=== PATIENT | female | born 1935 | race Caucasian/White ===

== ENCOUNTER → 2016-08-12 | Outpatient (CLI) | payer MEDICARE | END | disposition home or self-care (01) | LOC: GMAB 10:13 | PROVIDERS: ATTEND Family Medicine | DX: N39.0 Urinary tract infection, site not specified (principal) ==

== ENCOUNTER → 2016-08-19 | Outpatient (CLI) | payer MEDICARE ==
--- NOTE | 2016-08-19 09:30 | CT ---
EXAM DESCRIPTION: CT ABDOMEN PELVIS WITHOUT THEN WITH IV CONTRAST CLINICAL HISTORY: HEMATURIA COMPARISON: None. TECHNIQUE: Pre and post contrast CT images of the abdomen and pelvis are obtained. CT scan done according to ALARA (As Low As Reasonably Achievable). FINDINGS: The visualized lung bases show a noncalcified 5 mm pulmonary nodule in the right lower lobe. 3 mm subpleural nodule is also seen on image 3 of series 2. The liver is mildly enlarged measuring 16 cm AP at the right midclavicular line. Liver is heterogeneous and decreased attenuation compared to the spleen without focal mass. Small hiatal hernia is noted. Spleen, adrenal glands, and gallbladder are unremarkable. Mild to moderate fatty replacement of the pancreas is seen. Moderate atherosclerotic disease is seen. Kidneys show no abnormal calcifications. No ureteral calcification or obstruction is seen. Several fluid attenuation renal cortical cysts and parapelvic cysts are identified on the right kidney. Dominant cortical cyst measures 3.4 cm in the lower pole. There are fluid attenuation parapelvic cysts of the left kidney measuring less than 1.6 cm greatest diameter. Urinary bladder is contracted with diffuse circumferential bladder wall thickening. The uterus shows a 5 mm calcification in the right fundus probably representing calcified uterine fibroid. No abnormal adnexal mass is seen. The appendix is within normal limits. No small bowel obstruction. Colon is unremarkable. No significant diverticular disease is seen. No pathologic lymphadenopathy is seen. Small fat containing umbilical hernia is noted. Osseous structures show no aggressive bony lesions. IMPRESSION: There are several simple appearing bilateral renal cortical cysts and parapelvic cyst. No CT evidence of significant nephrolithiasis. Diffuse urinary bladder wall thickening is seen. This could be secondary to poor distension of the urinary bladder. Infectious or inflammatory process could have a similar appearance. Moderate diffuse fatty infiltration of the liver is noted. Other findings as described in body of the report. Nonspecific 5 mm noncalcified pulmonary nodule in the right lower lobe. Recommend followup imaging in 6-12 months to determine long-term stability. As per Fleischner Society guidelines for follow-up and management of pulmonary nodules: For patient at low risk (minimal or absent history of smoking and of other known risk factors), recommend follow-up chest CT at 12 months; if unchanged, no further follow-up. For patient at high risk (history of smoking or of other known risk factors), recommend initial follow-up chest CT at 6-12 months, then at 18-24 months if no interval change. Electronically signed by: David Gloria MD 08/19/2016 09:28
== END | disposition home or self-care (01) ==
LOC: CT 08:11
PROVIDERS: ATTEND Family Medicine
DX: R31.9 Hematuria, unspecified (principal)

== ENCOUNTER → 2017-02-13 | Outpatient (CLI) | payer MEDICARE | END | disposition home or self-care (01) | LOC: GMAB 09:59 | PROVIDERS: ATTEND Family Medicine | DX: E03.9 Hypothyroidism, unspecified (principal) ==

== ENCOUNTER 2017-05-05 18:47 | Inpatient (IN) | payer MEDICARE ==
--- NOTE | 2017-05-05 19:12 | ED.PDOC ---
History of Present Illness - General Chief Complaint: Lower Extremity Injury Stated Complaint: Left hip pain Time Seen by Provider: 05/05/17 18:52 Source: patient, RN notes reviewed, Vital Signs reviewed, EMS Exam Limitations: no limitations - History of Present Illness Initial Comments: Patient comes to ER via EMS with c/o L hip pain and inability to get up. She accidentally backed off a step and fell onto concrete garage floor. She was unable to get herself back up. She denies any other injuries. Occurred: just prior to arrival Pain - Lower Extremity: moderate: Left Thigh/Hip Method of Injury: fell Improving Factors: rest Worsening Factors: movement Allergies/Adverse Reactions: Allergies Penicillins Allergy (Verified 05/05/17 18:50) Review of Systems - Review of Systems Constitutional: States: no symptoms reported EENTM: States: no symptoms reported Respiratory: States: no symptoms reported Cardiology: States: no symptoms reported Musculoskeletal: States: see HPI, joint pain - L hip Skin: States: no symptoms reported Neurological: States: no symptoms reported. Denies: numbness, paresthesia All other Systems: No Change from Baseline Past Medical History (General) - Patient Medical History Hx Seizures: No Hx Stroke: No Hx Dementia: No Hx Asthma: No Hx of COPD: No Hx Cardiac Disorders: No Hx Congestive Heart Failure: No Hx Pacemaker: No Hx Hypertension: Yes Hx Thyroid Disease: Yes - hypothyroid Hx Diabetes: Yes Hx Gastroesophageal Reflux: No Hx Renal Disease: No Hx Cancer: No Hx of HIV: No Hx Hepatitis C: No Hx MRSA: No Surgical History: no surgical history - Vaccination History Hx Tetanus, Diphtheria Vaccination: No Hx Influenza Vaccination: No Hx Pneumococcal Vaccination: Yes Immunizations Up to Date: Yes - Social History Hx Tobacco Use: No Hx Alcohol Use: No - Female History Patient is a Female of Child Bearing Age (10 -59 yrs old): No Family Medical History - Family History Mother Family History: No Known Living Status: Physical Exam - Physical Exam General Appearance: Alert, Comfortable, No apparent distress, Well Developed, Well Groomed, Well Hydrated, Well Nourished Cardiovascular/Respiratory: regular rate, rhythm, no M/R/G, normal peripheral pulses, normal breath sounds, no respiratory distress Thigh/Hip: deformity - L leg externally rotated, limited ROM, pain Leg: normal inspection, non-tender, no evidence of injury, normal ROM Knee: normal inspection, non-tender, no evidence of injury, normal ROM Foot: normal inspection, non-tender, no evidence of injury, normal ROM Neuro/Tendon: normal sensation, normal motor functions, normal tendon functions , responds to pain, no evidence tendon injury Mental Status: alert, oriented x 3 Skin: normal color, warm/dry Comments: Vital Signs 05/05/17 18:50 Temperature 98.8 F Pulse Rate [ 86 Left radial] Respiratory 18 Rate Blood Pressure 175/73 [Left Arm] O2 Sat by Pulse 96 Oximetry Progress - Progress Progress: 05/05/17 20:[address] 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 Copy, Patient Portal Self Enrollment Instructions: DI for Leg Pain Referrals: Graham Pak MD [Primary Care Provider] - 1-2 Weeks Decision To Admit - Decistion To Admit Decision to Admit Reason: Admit from ER Decision to Admit Date: 05/05/17 Decision to Admit Time: 20:00
[2017-05-05] MEDS ORDERED: ONDANSETRON INJ 4 MG/2 ML VIAL IV ONE (19:18)
[2017-05-05] MEDS ORDERED: HYDROmorphone HCL INJ 2 MG/ML VIAL IV ONE (19:18)
--- NOTE | 2017-05-05 19:48 | RAD ---
EXAM DESCRIPTION: Hip, left 2 Views CLINICAL HISTORY: 81 years Female pain s/p fall COMPARISON: None. TECHNIQUE: Two views of the left hip. FINDINGS: There are slightly distracted intertrochanteric fractures with minimal varus angulation. The lesser trochanter fracture fragment is displaced slightly medially. IMPRESSION: Intertrochanteric fractures involving the left hip. Electronically signed by: Phillip Fournier MD 05/05/2017 7:46 PM CDT
--- NOTE | 2017-05-05 20:24 | HP ---
SUPERVISING PHYSICIAN: Marco Antonio Hill MD HISTORY OF PRESENT ILLNESS: This is an 81 year-old female patient who was visiting a friend earlier today. She accidentally backed off the step at her friend's house and fell and was unable to get back up. The ambulance was called and she was brought to the Emergency Room. In the Emergency Room, there was no lab drawn but her hip x-ray per radiology interpretation shows an intertrochanteric fracture of the left hip. The Emergency Room physician called Dr. De La O, orthopedic surgeon, and I was called for hospital admission. PAST MEDICAL HISTORY: 1. Seasonal allergies. 2. Hyperlipidemia. 3. Hypothyroidism. 4. Osteoporosis. 5. Eczema. 6. Diabetes mellitus type 2. PAST SURGICAL HISTORY: 1. Tonsillectomy as a child. 2. Colonoscopy. OUTPATIENT MEDICATIONS: Per the EMR and awaiting verification. ALLERGIES: 1. Penicillin. 2. Lisinopril. 3. Norvasc. SOCIAL HISTORY: She is , she lives in [place]. She has 2 children. She denies smoking, ETOH or illicit drug use. REVIEW OF SYSTEMS: Negative except as per history of present illness. PHYSICAL EXAMINATION: VITAL SIGNS: Temperature 99.2, heart rate 94, blood pressure 154/77, respiratory rate 16. 02 saturation 94% on 2 liters nasal cannula/ GENERAL: This is an 81 year-old female patient who looks younger than her stated age, lying in her hospital in no acute distress. HEENT: Normocephalic and atraumatic. Pupils are equal and reactive. Oropharyngeal is clear. Oral mucous membranes are moist. NECK: Suppe without mass. CHEST: Clear to auscultation bilaterally. Chest has equal rise and fall of the chest with inspiration and expiration. CARDIOVASCULAR: Regular rate and rhythm. ABDOMEN: Soft, nondistended, non-tender. Bowel sounds are positive. EXTREMITIES: No cyanosis, clubbing, or edema. She does have pain, it is tender to palpation along the left hip and extends into the left groin. NEUROLOGIC: She is awake, alert, and oriented x3. SKIN: Warm and dry. No lesions or rashes noted. LABORATORY: There are no labs or films to report at this time. ASSESSMENT: 1. Intertrochanteric fracture of the left hip status post same level fall. 2. Diabetes mellitus. 3. Hypertension. 4. Hypothyroidism. 5. Gastroesophageal reflux disease. PLAN: We will admit the patient to the hospital. I have initiated the preoperative orders and have consulted Dr. De La O. He plans to do a gamma nail tomorrow at noon. She will be typed and crossed for 2 units of blood that will be on hold. There will be 2 grams of Ancef and 1 gram of vancomycin education spec to OR. Started Protonix for ulcer prophylaxis. She will be n.p.o. at midnight. We will give her medications tonight before midnight. I have ordered routine labs for this evening as well as a chest x-ray. We will follow her closely tonight and postoperatively and continue to monitor her closely and followup as needed. Dr. Hill is the collaborating physician available for consultation. #[id number] [facility]
[2017-05-05] MEDS ORDERED: KETOROLAC TROMETHAMINE INJ 30 MG/ML VIAL ONE (20:37)
[2017-05-05] MEDS ORDERED: KETOROLAC TROMETHAMINE INJ 30 MG/ML VIAL IV ONE (20:37)
[2017-05-05] MEDS ORDERED: NON-FORMULARY MEDICATION 1 EA MIS (Pravastatin Sodium [Pravachol] 40 MG) PO SCH (21:00)
[2017-05-05] MEDS ORDERED: ONDANSETRON INJ 4 MG/2 ML VIAL IV PRN (21:15)
[2017-05-05] MEDS ORDERED: PANTOPRAZOLE SODIUM IV 40 MG VIAL IV SCH (21:30)
[2017-05-05] MEDS ORDERED: PRAVASTATIN SODIUM 20 MG TAB ONE (21:56)
[2017-05-05] MEDS: SODIUM CHLORIDE 0.9% (FLUSH) 10 ML SYG IV PRN (22:00)
[2017-05-05] MEDS: LOSARTAN POTASSIUM 100 MG TAB PO SCH (22:01)
[2017-05-05] MEDS: METOPROLOL SUCCINATE XL 50 MG TAB PO SCH (22:01)
[2017-05-05] MEDS: amLODIPine BESYLATE 5 MG TAB PO SCH (22:01)
[2017-05-05] MEDS: IV SET AND CAP CHANGE INJ INJ SCH (22:02)
--- NOTE | 2017-05-05 22:42 | RAD ---
EXAM DESCRIPTION: Chest,1 View CLINICAL HISTORY: 81 years Female preop COMPARISON: None. FINDINGS: The cardiomediastinal silhouette appears unremarkable. No consolidating infiltrates or pleural effusions. No pneumothorax. Lungs appear hyperinflated. Atelectasis or scarring in both lung bases. IMPRESSION: No acute abnormality is identified. Electronically signed by: Sherri Fournier 05/05/2017 10:40 PM CDT
[2017-05-06] MEDS: MORPHINE SULFATE INJ 10 MG/ML VIAL IV PRN ×4 (03:51→20:13)
[2017-05-06] MEDS ORDERED: VANCOMYCIN HCL INJ 1,000 MG in SODIUM CHLORIDE 0.9% 250ML 250 ML IVPB ONE (06:00)
[2017-05-06] MEDS ORDERED: ceFAZolin SODIUM 2 GM in SODIUM CHLORIDE 0.9% 100ML 100 ML IVPB ONE (06:00)
[2017-05-06] MEDS: METOPROLOL SUCCINATE XL 50 MG TAB PO SCH ×2 (08:30→20:53)
[2017-05-06] MEDS: LEVOTHYROXINE SODIUM 0.025 MG TAB PO SCH (08:32)
[2017-05-06] MEDS ORDERED: MIDAZOLAM INJ 2 MG/2 ML VIAL ONE (11:05)
[2017-05-06] MEDS ORDERED: MORPHINE SULFATE INJ 10 MG/ML VIAL ONE (11:06)
[2017-05-06] MEDS ORDERED: ceFAZolin SODIUM 1 GM VIAL ONE ×2 (11:07→11:21)
[2017-05-06] MEDS ORDERED: VANCOMYCIN HCL INJ 1,000 MG VIAL IVPB ONE ×4 (11:08→20:33)
[2017-05-06] MEDS ORDERED: LIDOCAINE 1% W/ EPINEPHRINE 20 ML VIAL INJ ONE (11:08)
[2017-05-06] MEDS ORDERED: SODIUM CHLORIDE 0.9% 250ML 250 ML ONE ×2 (11:19→20:32)
[2017-05-06] MEDS ORDERED: GLUCAGON INJ 1 MG VIAL SUBCU PRN (11:21)
[2017-05-06] MEDS ORDERED: DEXTROSE 50% 25 GM/50 ML SYG IV PRN (11:21)
[2017-05-06] MEDS ORDERED: SODIUM CHLORIDE 0.9% 100ML 100 ML IVPB ONE (11:22)
--- NOTE | 2017-05-06 11:45 | PN ---
DATE: 05/06/17 SUPERVISING PHYSICIAN: Marco Antonio Hill M.D. SUBJECTIVE: The patient is lying in her hospital bed. She is awaiting surgery this morning for a gamma nail to the left hip. Dewayne Guerrero, CHRISTY, is at the bedside discussing her surgical procedure. She has no complaints of shortness of breath, nausea or vomiting, diarrhea or constipation. She continues to have some mild pain along that left hip but it is being controlled by the medication she is receiving. OBJECTIVE: VITAL SIGNS: She is afebrile, heart rate 70, blood pressure 120/70, respiratory rate 12 to 16, O2 sat is 97% on room air. RESPIRATORY: Clear to auscultation bilaterally. CARDIAC: Regular rate and rhythm. ABDOMEN: Soft, nondistended, non-tender. Bowel sounds are positive. EXTREMITIES: No cyanosis , clubbing or edema. Bilateral pedal pulses are palpable at +2. It continues to be tender to palpation along that left lateral hip area. NEUROLOGIC: She is awake, alert and oriented times three. LABORATORY: WBCs are slightly elevated at 15.5 with hemoglobin 13.5 and hematocrit 40.7. Coags are within normal limits. Chemistries are within normal limits with the exception of her glucose is slightly elevated at 171. Urinalysis is negative for a urinary tract infection. RADIOLOGY: Chest x-ray shows no acute abnormality. All other labs and films have been reviewed via the EMR. ASSESSMENT: 1. Intertrochanteric fracture of the left hip status post same level fall. She is awaiting surgical intervention for gamma nail today by Dr. Delta De La O, orthopedic surgeon. 2. Diabetes mellitus. 3. Hypertension. 4. Hypothyroidism. 5. Gastroesophageal reflux disease. PLAN: We will continue present supportive care. She will go to surgery today for a gamma nail per Dr. Delta De La O, orthopedic surgeon. Orthopedic issues will be per Dr. Delta De La O. I have already started her home medications. She has been NPO but postoperatively those will resume. I have also started Accu- Cheks a.c. and h.s. Tomorrow she will start with her physical therapy for strengthening and conditioning. Otherwise we will continue to monitor the patient closely and follow as needed. Dr. Hill is the collaborating physician available for consultation. #[id number] [facility]
[2017-05-06] MEDS ORDERED: ELECTROLYTE-A 1,000 ML IVS ONE (11:49)
[2017-05-06] MEDS ORDERED: PROPOFOL 200 MG/20 ML VIAL IV ONE (12:00)
[2017-05-06] MEDS ORDERED: SODIUM CHLORIDE 0.9% 50 ML VIAL INJ ONE (12:00)
[2017-05-06] MEDS ORDERED: ePHEDrine SULF 50 MG/ML IV ONE (12:00)
[2017-05-06] MEDS ORDERED: DEXAMETHASONE INJ 10 MG/ML VIAL IV ONE (12:00)
[2017-05-06] MEDS ORDERED: raNITIdine HCL INJ 25 MG/ML VIAL IV ONE (12:00)
[2017-05-06] MEDS ORDERED: ACETAMINOPHEN IV 1000MG 100 ML ONE ×2 (12:06→12:37)
[2017-05-06] MEDS ORDERED: VANCOMYCIN HCL INJ 1,000 MG in SODIUM CHLORIDE 0.9% 250ML 250 ML IVPB SCH (12:30)
--- NOTE | 2017-05-06 14:33 | RAD ---
Procedure: XR HIP 2 OR MORE VIEWS, XR PELVIS 3 OR MORE VIEWS Exam Date: 05/06/2017 12:05 PM CDT Ordering Provider: YVONNE CARMEN MD Clinical Indication: post op Comparison: None Findings: There is interval antegrade blood with proximal and distal interlocking screws transfixing an intertrochanteric fracture of the left proximal femur. No new fracture or focal osseous destruction is present. The visualized hardware is intact. Postoperative soft tissue swelling and air are seen about the left hip joint. IMPRESSION: ORIF of a comminuted left proximal intertrochanteric femur fracture with intact hardware and no acute complication. Electronically signed by: Reny Sinha MD 05/06/2017 2:32 PM CDT
[2017-05-06] MEDS: ENOXAPARIN SODIUM 30 MG/0.3 ML SYG SUBCU SCH (14:38)
[2017-05-06] MEDS: CEFAZOLIN SODIUM 2 GRAMS IV 2 GM in PREMIX BAG 1 BAG IVPB SCH ×2 (14:38→20:20)
[2017-05-06] MEDS: VANCOMYCIN HCL INJ 1,000 MG in SODIUM CHLORIDE 0.9% 250ML 250 ML IVPB SCH (14:39)
[2017-05-06] MEDS ORDERED: metFORMIN HCL 500 MG TAB ONE (15:25)
[2017-05-06] MEDS: INSULIN LISPRO 100 UNITS/ML PEN SUBCU SCH ×2 (16:25→21:24)
[2017-05-06] MEDS: metFORMIN HCL 500 MG TAB PO SCH (16:46)
[2017-05-06] MEDS ORDERED: CEFAZOLIN SODIUM 2 GRAMS IV 50 ML IVPB ONE (19:54)
[2017-05-06] MEDS: amLODIPine BESYLATE 5 MG TAB PO SCH (20:53)
[2017-05-06] MEDS: PRAVASTATIN SODIUM 20 MG TAB PO SCH (20:53)
[2017-05-06] MEDS: LOSARTAN POTASSIUM 100 MG TAB PO SCH (20:53)
[2017-05-06] MEDS: PANTOPRAZOLE SODIUM IV 40 MG VIAL IV SCH (20:54)
[2017-05-06] MEDS: NON-FORMULARY MEDICATION 1 EA MIS (Raloxifene Hcl [Raloxifene Hydrochloride] 60 MG) PO SCH (20:54)
[2017-05-06] MEDS: POLYETHYLENE GLYCOL 3350 17 GM PCKT PO PRN (21:25)
[2017-05-07] MEDS: ENOXAPARIN SODIUM 30 MG/0.3 ML SYG SUBCU SCH ×2 (00:47→12:59)
[2017-05-07] MEDS: VANCOMYCIN HCL INJ 1,000 MG in SODIUM CHLORIDE 0.9% 250ML 250 ML IVPB SCH ×2 (00:48→13:00)
[2017-05-07] MEDS: SODIUM CHLORIDE 0.9% (FLUSH) 10 ML SYG IV PRN (00:48)
[2017-05-07] MEDS ORDERED: CEFAZOLIN SODIUM 2 GRAMS IV 50 ML IVPB ONE (04:00)
[2017-05-07] MEDS: CEFAZOLIN SODIUM 2 GRAMS IV 2 GM in PREMIX BAG 1 BAG IVPB SCH (04:13)
[2017-05-07] MEDS: MORPHINE SULFATE INJ 10 MG/ML VIAL IV PRN ×3 (04:50→22:38)
[2017-05-07] MEDS: LEVOTHYROXINE SODIUM 0.025 MG TAB PO SCH (06:41)
[2017-05-07] MEDS: INSULIN LISPRO 100 UNITS/ML PEN SUBCU SCH ×4 (07:02→21:00)
[2017-05-07] MEDS: METOPROLOL SUCCINATE XL 50 MG TAB PO SCH ×2 (08:07→20:31)
[2017-05-07] MEDS ORDERED: SODIUM CHLORIDE 0.9% 250ML 250 ML ONE ×2 (12:35→19:32)
[2017-05-07] MEDS ORDERED: VANCOMYCIN HCL INJ 1,000 MG VIAL IVPB ONE ×2 (12:36→19:34)
--- NOTE | 2017-05-07 13:15 | CONS ---
DATE OF CONSULTATION: 05/06/17 HISTORY OF PRESENT ILLNESS: Aviva is an 81 year-old female with a history of a fall that occurred on the day of presentation which was 05/05/17 late in the evening. Aviva had the acute onset of pain and the inability to get up from the floor. Aviva was brought to the Emergency Room and x-rays revealed an intertrochanteric fracture of the hip. Because of the intertrochanteric fracture, Aviva and I discussed the risks, benefits, and alternatives to operative therapy. Aviva gave informed consent for gamma nailing. PAST MEDICAL HISTORY: 1. Allergies. 2. Hyperlipidemia. 3. Hypothyroidism. 4. Osteoporosis. 5. Eczema. 6. Diabetes type 2. PAST SURGICAL HISTORY: 1. Tonsillectomy. 2. Colonoscopy. CURRENT MEDICATIONS: Please see nursing notes for a current and verified list. ALLERGIES: PENICILLIN, LISINOPRIL AND NORVASC. SOCIAL HISTORY: She does not drink, smoke or use illicit drugs. REVIEW OF SYSTEMS: Negative except as indicated in the history of present illness. PHYSICAL EXAMINATION: VITAL SIGNS: Blood pressure 150/75, pulse 90, respirations 14, O2 sat 94 on 2 liters nasal cannula. MENTAL STATUS: The patient is awake, alert, and is able to give a good history and participate in the physical. The patient is oriented to person, place and time. SKIN: Normal tone and turgor. HEENT: Normocephalic, atraumatic. Pupils equal, round and reactive. Mucosal membranes are moist. NECK: Normal range of motion. No thyromegaly, no lymphadenopathy. CHEST: Normal respiratory excursion. CARDIAC: Regular rate and rhythm. No murmurs, rubs or gallops. MUSCULOSKELETAL: The bilateral upper extremities show full active range of motion. She has intact sensation and they are warm and well perfused. She has no deformity and no crepitus. Full range of motion. Strength is 5/5. The right lower extremity shows no deformities and range of motion is difficult only secondary to pain in the left hip. She does have full 5/5 plantar flexion and dorsiflexion. Strength as well as sensation is intact throughout the extremity. The left leg shows no motion in the hip secondary to pain. She has no deformity and no malalignment present. Sensation is intact distally and she does have full 5/5 plantar flexion and dorsiflexion strength. X-RAYS: X-rays show an intertrochanteric fracture with some comminution. ASSESSMENT: 1. Intertrochanteric fracture. PLAN: The plan at this point is for gamma nailing of the hip. We have discussed the risks, benefits, and alternatives to that and she has given informed consent for that. #[id number] [facility]
--- NOTE | 2017-05-07 13:47 | OP ---
DATE OF PROCEDURE: 05/07/17 PREOPERATIVE DIAGNOSIS: 1. Left intertrochanteric fracture. POSTOPERATIVE DIAGNOSIS: 1. Left intertrochanteric fracture. PROCEDURE: 1. Gamma nail. SURGEON: Delta De La O M.D. CLAM TREADER: Jaron Townsend CST, SA-C ANESTHESIA: General anesthesia. COMPLICATIONS: None. FINDINGS: Intertrochanteric fracture of the hip. INDICATION FOR PROCEDURE: Ms. Corona is an 81 year-old female with a history of a fracture that occurred on the day of presentation. Because of the fall, she ended up having an intertochanteric fracture. We discussed the risks, benefits, and alternatives to operative therapy and informed consent was obtained for gamma nailing. PROCEDURE: The patient was brought to the Operating Room and placed in the supine position. General anesthesia was administered and the patient was placed on the fracture table. The fracture was provisionally reduced under fluoroscopic imaging and after reduction, the leg and hemipelvis were sterilely prepped and draped. An incision was made just proximal to the greater trochanter and dissection was carried through the iliotibial band and down to the greater trochanter. A starting pin was placed and a one-step reamer was used to open the femoral canal. A 125 degree angled Gamma nail was inserted into the canal to the appropriate level. A guide pin was placed from the lateral cortex into the femoral head. The appropriate length compression screw was measured and inserted with the placement guided under direct imaging. Following that, the distal locking screw was drilled, measured, and placed under imaging. The proximal locking screw was placed through the outrigger into the top of the nail and the outrigger removed. The final construct was imaged and the wounds were thoroughly irrigated, followed by closure with Monocryl suture. Sterile dressings were placed. The patient was awoken from anesthesia and taken to the Recovery Room. POSTOPERATIVE: She is going to be toe touch weightbearing on postoperative day 1. #[id number] [facility]
--- NOTE | 2017-05-07 13:52 | PCM.CORE ---
Physician DVT/VTE - Nurse DVT Assessment & Total Each Risk Factor Represents 5 Points: Hip,Pelvis,leg Fx <1month, Major Trauma < 1 month Each Risk Factor Represents 3 Points: Age over 75 years Each Risk Factor Represents 1 Point: Medical PT at Bed Rest DVT Assessment Score: 14 - 5 or more Very High Risk Treatments: Early Ambulation *, Sequential Compression Device Pharmacological: Enoxaparin 30mg SQ BID
--- NOTE | 2017-05-07 15:49 | PN ---
DATE: 05/07/17 SUPERVISING PHYSICIAN: Marco Antonio Hill M.D. SUBJECTIVE: The patient is up to the bedside chair this morning. She did work with physical therapy and did well. She has had good pain control. She remains afebrile. She is tolerating a diet. OBJECTIVE: VITAL SIGNS: T max 98.2, pulse 79, blood pressure 117/72, respirations 20, satting 98% on nasal cannula at 2 liters at rest. I's and O's show a positive balance of 245 with 770 in, 525 out. Weight 79.6 kg. CHEST: Lungs were clear to auscultation. HEART: Regular rate and rhythm. ABDOMEN: Soft, non-tender. Positive bowel sounds. Left hip has a large dressing in place which is clean and dry. Pulses distally are strong. Capillary refill is brisk. NEUROLOGIC: She is alert and oriented times three. LABORATORY: Blood sugars have been well controlled between 150 to 153. No additional laboratory studies were completed. ASSESSMENT: 1. Intertrochanteric fracture of the left hip status post same level fall, postoperative day 1 for repair with a gamma nail performed by Dr. Delta De La O, orthopedic surgeon. 2. Diabetes mellitus type 2 noninsulin dependent. 3. Hypertension well controlled. 4. Hypothyroidism on supplementation. 5. Gastroesophageal reflux disease. PLAN: Will continue to follow the patient as she progresses through her postoperative physical therapy rehabilitation phase. Will recheck her medications and resume as required. Will anticipate discharge once she has met her goals with anticipation of possibly going to [facility]ing [facility] as she does live alone. Until then, will continue to monitor and treat appropriately. #[id number] [facility]
[2017-05-07] MEDS: metFORMIN HCL 500 MG TAB PO SCH (16:43)
[2017-05-07] MEDS: amLODIPine BESYLATE 5 MG TAB PO SCH (20:31)
[2017-05-07] MEDS: LOSARTAN POTASSIUM 100 MG TAB PO SCH (20:31)
[2017-05-07] MEDS: PRAVASTATIN SODIUM 20 MG TAB PO SCH (20:31)
[2017-05-07] MEDS: PANTOPRAZOLE SODIUM IV 40 MG VIAL IV SCH (20:44)
[2017-05-07] MEDS: NON-FORMULARY MEDICATION 1 EA MIS (Raloxifene Hcl [Raloxifene Hydrochloride] 60 MG) PO SCH (20:46)
[2017-05-08] MEDS: ENOXAPARIN SODIUM 30 MG/0.3 ML SYG SUBCU SCH ×2 (00:54→12:43)
[2017-05-08] MEDS: VANCOMYCIN HCL INJ 1,000 MG in SODIUM CHLORIDE 0.9% 250ML 250 ML IVPB SCH (01:07)
[2017-05-08] MEDS: MORPHINE SULFATE INJ 10 MG/ML VIAL IV PRN (03:29)
[2017-05-08] MEDS: LEVOTHYROXINE SODIUM 0.025 MG TAB PO SCH (06:42)
[2017-05-08] MEDS: INSULIN LISPRO 100 UNITS/ML PEN SUBCU SCH ×4 (07:12→20:59)
[2017-05-08] MEDS: POLYETHYLENE GLYCOL 3350 17 GM PCKT PO SCH (08:21)
[2017-05-08] MEDS: METOPROLOL SUCCINATE XL 50 MG TAB PO SCH ×2 (08:21→20:40)
[2017-05-08] MEDS ORDERED: hydrOXYzine HCl 25 MG TAB PO PRN (08:25)
[2017-05-08] MEDS: metFORMIN HCL 500 MG TAB PO SCH (17:03)
--- NOTE | 2017-05-08 18:43 | PN ---
DATE: 05/08/17 SUPERVISING PHYSICIAN: Abner Gonzalez M.D. SUBJECTIVE: The patient is sitting in the bedside chair. She just finished physical therapy. She is doing well. Cerna catheter is fixing to be removed. The vancomycin has been stopped. She has been transitioned to p.o. medication for pain control. She is tolerating diet. She has had no nausea or vomiting. OBJECTIVE: VITAL SIGNS: Temperature 98.7, pulse 85, blood pressure 144/58, respirations 12, satting 93% on nasal cannula at rest on room air. I's and O's show a negative balance of 1165 with 1310 in, 2075 out. Weight is 79.6 kg. CHEST: Lungs are clear to auscultation bilaterally. HEART: Regular rate and rhythm. ABDOMEN: Soft, non-tender. Positive bowel sounds. EXTREMITIES: Right hip has a large bandage remove. It has bandaids in place. There is just some mild erythema with no obvious signs of infection. Pulses distally are strong, capillary refill is brisk. NEUROLOGIC: She is alert and oriented times three. LABORATORY: H&H today showed hemoglobin 9.6, hematocrit 28.4. Chemistries showed normal electrolytes with potassium 3.9. Blood sugars have been anywhere from 135 to 221. BUN 15, creatinine 0.75. RADIOLOGY: There are no additional radiographic studies for review. ASSESSMENT: 1. Intertrochanteric fracture of the left hip status post same level fall, postoperative day 2 for repair with gamma nail performed by Dr. Delta De La O, orthopedic surgeon. 2. Diabetes mellitus type 2 noninsulin dependent showing to be stable. 3. Hypertension well controlled. 4. Hypothyroidism on supplementation. 5. Gastroesophageal reflux disease. PLAN: The patient continues to show good progression with her physical therapy. Will continue to follow as she progresses in her physical therapy goals with anticipation of probably going to [facility] once closer to discharge. Until then, will continue to monitor and treat appropriately. #[id number] [facility]
[2017-05-08] MEDS: LOSARTAN POTASSIUM 100 MG TAB PO SCH (20:40)
[2017-05-08] MEDS: NON-FORMULARY MEDICATION 1 EA MIS (Raloxifene Hcl [Raloxifene Hydrochloride] 60 MG) PO SCH (20:40)
[2017-05-08] MEDS: POLYETHYLENE GLYCOL 3350 17 GM PCKT PO PRN (20:40)
[2017-05-08] MEDS: PRAVASTATIN SODIUM 20 MG TAB PO SCH (20:40)
[2017-05-08] MEDS: amLODIPine BESYLATE 5 MG TAB PO SCH (20:40)
[2017-05-08] MEDS: IV SET AND CAP CHANGE INJ INJ SCH (21:02)
[2017-05-08] MEDS: HYDROcodone 5MG/APAP 325MG 1 EA TAB PO PRN (23:40)
[2017-05-09] MEDS: ENOXAPARIN SODIUM 30 MG/0.3 ML SYG SUBCU SCH (00:07)
[2017-05-09] MEDS: LEVOTHYROXINE SODIUM 0.025 MG TAB PO SCH (06:15)
[2017-05-09] MEDS: INSULIN LISPRO 100 UNITS/ML PEN SUBCU SCH (07:18)
[2017-05-09] MEDS: METOPROLOL SUCCINATE XL 50 MG TAB PO SCH (08:07)
[2017-05-09] MEDS: POLYETHYLENE GLYCOL 3350 17 GM PCKT PO SCH (08:07)
[2017-05-09] MEDS: HYDROcodone 5MG/APAP 325MG 1 EA TAB PO PRN (08:57)
[2017-05-09 10:36] VITALS: BP 112/68; TEMP 98.4
[2017-05-09 14:52] VITALS: O2SAT 86
--- NOTE | 2017-05-10 09:23 | DS ---
SUPERVISING PHYSICIAN: Abner Gonzalez MD DISCHARGE DIAGNOSIS: 1. Intertrochanteric fracture of the left hip status post same level fall, postoperative day 3 for repair with Gamma nail performed by Dr. Delta De La O, orthopedic surgeon, requiring continued rehabilitation and reconditioning, therefore, Swing Bed admission. 2. Diabetes mellitus, type 2, noninsulin dependent, stable. 3. Hypertension, well controlled. 4. Hypothyroidism on supplementation. 5. Gastroesophageal reflux disease. HISTORY OF PRESENT ILLNESS: Ms. Corona is an 81 year-old, female patient who was visiting a friend on date of admission of 05/05/17. She accidentally backed off a step at her friend's house and fell, landing on her hip, and was unable to get back up. The ambulance was called and she was brought to the Emergency Room. In the Emergency Room, x-ray per radiology interpretation showed an intertrochanteric fracture of the left hip. Dr. De La O, orthopedic surgeon, was consulted and the patient was then admitted to the Medical/Surgical Floor for a left hip repair with Gamma nail that was performed on 05/07/17. LABORATORY: Initial white count was 15,500, hemoglobin at discharge was 9.6, hematocrit 28.4. Platelet count 299,000. Differential did show a left shift. Coagulation studies on admission showed PT and PT-T to be within normal limits. Chemistries showed normal electrolytes on admission with potassium 4.1, BUN 16 , creatinine 0.7. Liver functions within normal limits. On 05/08/17, the day before discharge, electrolytes were still within normal limits with potassium 3.9. Blood sugars were well controlled between 151 and 294. Urinalysis was within normal limits. MICROBIOLOGY: No specimens submitted. RADIOLOGY: Hip x-ray in the Emergency Department prior to admission per radiologic interpretation showed intertrochanteric fracture involving the left hip. She also had a chest x-ray and per radiologic interpretation of single view chest showed no acute abnormalities identified. This was followed up with a pelvis x-ray on 05/06/17 and showed open reduction and internal fixation of a comminuted left proximal intertrochanteric femur fracture with intact hardware and no acute complication. She also had a hip x- ray on the same day and per radiologic interpretation again showed similar findings as noted on initial report. See those reports for full details. CONSULTATION: Orthopedic services, Dr. Delta De La O, for diagnosis of an intertrochanteric fracture of the left hip. PROCEDURE: Gamma nail. Please see Dr. De La O's operative report for full details. HOSPITAL COURSE: Ms. Corona was admitted on 05/05/17 as noted above for left intertrochanteric hip fracture. She was stable on admission and on 05/07/17 had open reduction and internal fixation of the left hip with Gamma nail performed by Dr. Delta De La O. There were no complications during surgery. She was seen immediately postoperative and followed through her participation in rehab. She did well with rehab, but still needs a significant amount of rehab as she does live alone to ensure she was safe to go home. Therefore, it was suggested that the patient be discharged from Acute Care and changed to Swing Bed for ongoing physical therapy and rehabilitation efforts. PLAN: The patient was discharged on 05/09/17 from Acute Care and admitted to Swing Bed for continued strengthening and rehabilitation and physical therapy efforts. #[id number] [facility]
== END 2017-05-09 12:40 | disposition swing bed (61) | DRG 482 ==
LOC: ER 18:47 → OBSVTOIN 20:23 → MS 20:23
PROVIDERS: ADMIT Nurse Practitioner Acute Care; ATTEND Nurse Practitioner Family
PROC: 0QS706Z Reposition Left Upper Femur with Intramedullary Internal Fixation Device, Open Approach (ICD-10-PCS; principal; 2017-05-05)
DX: S72.142A Displaced intertrochanteric fracture of left femur, initial encounter for closed fracture (principal); W10.9XXA Fall (on) (from) unspecified stairs and steps, initial encounter; J30.2 Other seasonal allergic rhinitis; E78.5 Hyperlipidemia, unspecified; E03.9 Hypothyroidism, unspecified; M81.0 Age-related osteoporosis without current pathological fracture; E11.9 Type 2 diabetes mellitus without complications; L30.9 Dermatitis, unspecified; I10 Essential (primary) hypertension; K21.9 Gastro-esophageal reflux disease without esophagitis; Y93.9 Activity, unspecified; Y92.009 Unspecified place in unspecified non-institutional (private) residence as the place of occurrence of the external cause; Z88.0 Allergy status to penicillin; Z88.8 Allergy status to other drugs, medicaments and biological substances

== ENCOUNTER 2017-05-09 12:50 | Inpatient (IN) | payer MEDICARE ==
[2017-05-09] MEDS ORDERED: ACETAMINOPHEN 500 MG TAB PO PRN (14:55)
[2017-05-09] MEDS ORDERED: MAGNESIUM HYDROXIDE 30 ML UD PO PRN (14:55)
[2017-05-09] MEDS ORDERED: SODIUM PHOS/BIPHOS ENEMA ADULT 133 ML BTTL PR PRN (14:55)
[2017-05-09] MEDS ORDERED: GLUCAGON INJ 1 MG VIAL SUBCU PRN (15:01)
[2017-05-09] MEDS ORDERED: DEXTROSE 50% 25 GM/50 ML SYG IV PRN (15:01)
[2017-05-09] MEDS: INSULIN LISPRO 100 UNITS/ML PEN SUBCU SCH ×2 (18:09→21:07)
[2017-05-09] MEDS ORDERED: NON-FORMULARY MEDICATION 1 EA MIS (Pravastatin Sodium [Pravachol] 40 MG) PO SCH (21:00)
[2017-05-09] MEDS: HYDROcodone 5MG/APAP 325MG 1 EA TAB PO PRN (21:18)
[2017-05-09] MEDS ORDERED: hydrOXYzine HCl 25 MG TAB PO PRN (22:51)
[2017-05-09] MEDS ORDERED: RIVAROXABAN 10 MG TAB ONE (23:00)
[2017-05-09] MEDS: METOPROLOL SUCCINATE XL 50 MG TAB PO SCH (23:01)
[2017-05-09] MEDS ORDERED: PRAVASTATIN SODIUM 20 MG TAB ONE (23:01)
[2017-05-09] MEDS: LOSARTAN POTASSIUM 100 MG TAB PO SCH (23:01)
[2017-05-09] MEDS: NON-FORMULARY MEDICATION 1 EA MIS (Raloxifene Hcl [Raloxifene Hydrochloride] 60 MG) PO SCH (23:02)
[2017-05-09] MEDS: amLODIPine BESYLATE 5 MG TAB PO SCH (23:02)
[2017-05-09] MEDS: RIVAROXABAN 10 MG TAB PO SCH (23:02)
--- NOTE | 2017-05-09 23:10 | PCM.CORE ---
Physician DVT/VTE - Prophylaxis Currently: Patient already on anticoagulation therapy - xarelto - Nurse DVT Assessment & Total Each Risk Factor Represents 5 Points: Hip,Pelvis,leg Fx <1month Each Risk Factor Represents 3 Points: Age over 75 years Each Risk Factor is 1 Point: Obesity (BMI >25) DVT Assessment Score: 9 - 5 or more Very High Risk Treatments: Early Ambulation *, Sequential Compression Device
[2017-05-10] MEDS: HYDROcodone 5MG/APAP 325MG 1 EA TAB PO PRN ×2 (03:31→21:07)
[2017-05-10] MEDS ORDERED: RIVAROXABAN 10 MG TAB ONE (07:10)
[2017-05-10] MEDS ORDERED: DOCUSATE SODIUM 100 MG CAP ONE (07:11)
[2017-05-10] MEDS: INSULIN LISPRO 100 UNITS/ML PEN SUBCU SCH ×4 (07:29→21:06)
[2017-05-10] MEDS ORDERED: LEVOTHYROXINE SODIUM 0.025 MG TAB ONE (07:58)
--- NOTE | 2017-05-10 08:00 | HP ---
SUPERVISING PHYSICIAN: Abner Gonzalez MD REASON FOR SWING BED ADMISSION: Rehabilitation for a left hip fracture repair. HISTORY OF PRESENT ILLNESS: Ms. Corona is an 81-year-old, female patient who was initially admitted to Acute Care from the Emergency Room on 09/16 after she presented to the Emergency Department via EMS after she had fallen at a friend's house landing on her left hip. In the Emergency Room, she was found to have a left hip fracture, intertrochanteric. She was then admitted after consultation with orthopedic surgeon, Dr. De La O, for an open reduction and internal fixation that was performed on 05/07/17 with Gamma nail placement. The patient did well postoperatively and was able to participate with physical therapy, however, she continues to show a need for ongoing physical therapy and does live alone. It was felt that it was in her best interest that she be continued on physical therapy as a Swing Bed patient. Therefore, the patient is being discharged from Acute Care for continuation of physical therapy in Swing Bed. PAST MEDICAL HISTORY: 1. Seasonal allergies. 2. Hyperlipidemia. 3. Hypothyroidism. 4. Osteoporosis. 5. Eczema. 6. Diabetes mellitus, type 2. PAST SURGICAL HISTORY: 1. Tonsillectomy as a child. 2. Colonoscopy. 3. Recent open reduction and internal fixation of the left hip with a Gamma nail as noted in history of present illness status post same level fall on 05/05. OUTPATIENT MEDICATIONS: Please refer to the electronic medical record for an updated list of medications. ALLERGIES: 1. Penicillin. 2. Lisinopril. 3. Norvasc. SOCIAL HISTORY: She is , she lives in [place]. She has 2 children. She denies smoking, alcohol or illicit drug use. REVIEW OF SYSTEMS: Negative except as in history of present illness as noted on admission to Swing Bed for rehabilitation. PHYSICAL EXAMINATION: VITAL SIGNS: Temperature 98. Pulse 73. Blood pressure 108/58. Respirations 16. Saturation 95% on room air. Admission weight 80.64 kg. GENERAL: The patient is on the Medical/Surgical Floor just having finished physical therapy and appears to be comfortable. She has good pain control. She is alert and oriented times 3. HEENT: Tympanic membranes clear bilaterally. Oropharynx is pink, moist without any lesions. NECK: Supple, nontender with full range of motion. No jugular venous distention noted. CHEST: Lungs clear to auscultation bilaterally without any rhonchi, wheezes, or rales. CARDIOVASCULAR: Regular rate and rhythm without any appreciable murmurs, gallops, or rubs. ABDOMEN: Soft, nontender. Positive bowel sounds. EXTREMITIES: There is no cyanosis, clubbing or edema. The left hip has multiple bandages in place with mild erythema around the bandage, but no signs of infection. Distal pulses are strong. Capillary refill is brisk. NEUROLOGIC: The patient is alert and oriented times three. LABORATORY: No laboratories are pending. RADIOLOGY: No pending radiology exams. ASSESSMENT: 1. Intertrochanteric fracture of the left hip status post same level fall, postoperative day #3 from a Gamma nail procedure performed by Dr. Delta De La O, orthopedic surgeon, requiring ongoing continued physical therapy, therefore , admission to Swing Bed. 2. Non-insulin dependent diabetes mellitus, type 2, stable. 3. Hypertension, stable. 4. Hypothyroidism on supplementation. 5. Gastroesophageal reflux disease, well controlled. PLAN: The patient will be admitted to Swing Bed with physical therapy evaluation. She will continue with her physical therapy efforts and we will follow the patient as she progresses to meet her goals. Once the patient has met her goals, she will be discharged accordingly. Until then, we will continue to monitor the patient closely and treat appropriately. #[id number] [facility]
[2017-05-10] MEDS ORDERED: PANTOPRAZOLE SODIUM TAB 40 MG PO SCH (09:00)
[2017-05-10] MEDS: METOPROLOL SUCCINATE XL 50 MG TAB PO SCH ×2 (09:04→21:06)
[2017-05-10] MEDS: RIVAROXABAN 10 MG TAB PO SCH ×2 (09:04→09:07)
[2017-05-10] MEDS: LEVOTHYROXINE SODIUM 0.025 MG TAB PO SCH (09:04)
[2017-05-10] MEDS: DOCUSATE SODIUM 100 MG CAP PO SCH (09:04)
--- NOTE | 2017-05-10 09:27 | PN ---
DATE: 05/10/17 SUBJECTIVE: Ms. Corona is doing well today. She is up to a chair. Her pain is well controlled. OBJECTIVE: Vital signs stable. Wounds are clean. There are no signs or symptoms of infection. ASSESSMENT: Status post Gamma nail. PLAN: She will continue with her partial weight-bearing at this point. [facility][id number] [facility]
[2017-05-10] MEDS: metFORMIN HCL 500 MG TAB PO SCH (17:28)
[2017-05-10] MEDS ORDERED: PANTOPRAZOLE SODIUM TAB 40 MG PO ONE (19:28)
[2017-05-10] MEDS ORDERED: PRAVASTATIN SODIUM 20 MG TAB ONE (19:28)
[2017-05-10] MEDS ORDERED: ASPIRIN EC 81 MG TAB PO ONE (19:28)
[2017-05-10] MEDS: LOSARTAN POTASSIUM 100 MG TAB PO SCH (21:06)
[2017-05-10] MEDS: amLODIPine BESYLATE 5 MG TAB PO SCH (21:06)
[2017-05-10] MEDS: ASPIRIN EC 81 MG TAB PO SCH (21:06)
[2017-05-10] MEDS: PRAVASTATIN SODIUM 20 MG TAB PO SCH (21:06)
[2017-05-10] MEDS: NON-FORMULARY MEDICATION 1 EA MIS (Raloxifene Hcl [Raloxifene Hydrochloride] 60 MG) PO SCH (21:07)
[2017-05-11] MEDS: PANTOPRAZOLE SODIUM TAB 40 MG PO SCH (06:09)
[2017-05-11] MEDS: INSULIN LISPRO 100 UNITS/ML PEN SUBCU SCH ×4 (07:52→20:50)
[2017-05-11] MEDS: RIVAROXABAN 10 MG TAB PO SCH (09:02)
[2017-05-11] MEDS: DOCUSATE SODIUM 100 MG CAP PO SCH (09:02)
[2017-05-11] MEDS: METOPROLOL SUCCINATE XL 50 MG TAB PO SCH ×2 (09:02→20:47)
[2017-05-11] MEDS: LEVOTHYROXINE SODIUM 0.025 MG TAB PO SCH (09:02)
[2017-05-11] MEDS: metFORMIN HCL 500 MG TAB PO SCH (17:26)
[2017-05-11] MEDS: ASPIRIN EC 81 MG TAB PO SCH (20:47)
[2017-05-11] MEDS: amLODIPine BESYLATE 5 MG TAB PO SCH (20:47)
[2017-05-11] MEDS: PRAVASTATIN SODIUM 20 MG TAB PO SCH (20:47)
[2017-05-11] MEDS: LOSARTAN POTASSIUM 100 MG TAB PO SCH (20:47)
[2017-05-11] MEDS: NON-FORMULARY MEDICATION 1 EA MIS (Raloxifene Hcl [Raloxifene Hydrochloride] 60 MG) PO SCH (20:48)
[2017-05-11] MEDS: TEMAZEPAM 15 MG CAP PO PRN (22:29)
[2017-05-12] MEDS ORDERED: LEVOTHYROXINE SODIUM 0.025 MG TAB ONE (05:25)
[2017-05-12] MEDS: LEVOTHYROXINE SODIUM 0.025 MG TAB PO SCH (06:34)
[2017-05-12] MEDS: PANTOPRAZOLE SODIUM TAB 40 MG PO SCH (06:34)
[2017-05-12] MEDS: INSULIN LISPRO 100 UNITS/ML PEN SUBCU SCH ×4 (07:17→20:57)
[2017-05-12] MEDS: METOPROLOL SUCCINATE XL 50 MG TAB PO SCH ×2 (08:58→21:01)
[2017-05-12] MEDS: DOCUSATE SODIUM 100 MG CAP PO SCH (08:58)
[2017-05-12] MEDS: RIVAROXABAN 10 MG TAB PO SCH (08:58)
--- NOTE | 2017-05-12 11:18 | PN ---
DATE: 05/12/17 SUBJECTIVE: Ms. Corona is doing really well and she is up to a chair. She is not having any pain. OBJECTIVE: Afebrile. Vital signs stable. Wounds are clean. There are no signs or symptoms of infection. ASSESSMENT: Status post Gamma nailing. PLAN: She will continue with therapy. She will be discharged when she meets all therapy goals. [facility][id number] [facility]
[2017-05-12] MEDS: metFORMIN HCL 500 MG TAB PO SCH (17:37)
[2017-05-12] MEDS: LOSARTAN POTASSIUM 100 MG TAB PO SCH (21:01)
[2017-05-12] MEDS: PRAVASTATIN SODIUM 20 MG TAB PO SCH (21:01)
[2017-05-12] MEDS: ASPIRIN EC 81 MG TAB PO SCH (21:01)
[2017-05-12] MEDS: amLODIPine BESYLATE 5 MG TAB PO SCH (21:01)
[2017-05-12] MEDS: TEMAZEPAM 15 MG CAP PO PRN (21:02)
[2017-05-12] MEDS: NON-FORMULARY MEDICATION 1 EA MIS (Raloxifene Hcl [Raloxifene Hydrochloride] 60 MG) PO SCH (21:47)
[2017-05-13] MEDS: HYDROcodone 5MG/APAP 325MG 1 EA TAB PO PRN (01:06)
[2017-05-13] MEDS: LEVOTHYROXINE SODIUM 0.025 MG TAB PO SCH (06:08)
[2017-05-13] MEDS: PANTOPRAZOLE SODIUM TAB 40 MG PO SCH (06:08)
[2017-05-13] MEDS: INSULIN LISPRO 100 UNITS/ML PEN SUBCU SCH ×4 (07:09→21:09)
[2017-05-13] MEDS: RIVAROXABAN 10 MG TAB PO SCH (09:49)
[2017-05-13] MEDS: METOPROLOL SUCCINATE XL 50 MG TAB PO SCH ×2 (09:49→20:57)
[2017-05-13] MEDS: DOCUSATE SODIUM 100 MG CAP PO SCH (09:49)
--- NOTE | 2017-05-13 14:28 | PN ---
DATE: 05/13/17 SUPERVISING PHYSICIAN: Abner Gonzalez M.D. SUBJECTIVE: The patient is sitting up in her chair in her hospital room. She has no complaints of shortness of breath, nausea, vomiting, diarrhea or constipation. She feels like her therapy is going well and would like to continue with Swing Bed until at least the end of next week. OBJECTIVE: VITAL SIGNS: Temperature 99.7, heart rate 86, blood pressure 132/61 , respiratory rate 18, O2 sat is 95% on room air. RESPIRATORY: Clear to auscultation bilaterally. CARDIAC: Regular rate and rhythm. ABDOMEN: Soft, nondistended, non-tender. Bowel sounds are present. EXTREMITIES: She has a dressing to her left hip that is dry and intact. NEUROLOGIC: She is awake, alert and oriented times three. LABORATORY: Blood glucose has run between 141 and 178. There are no other labs or films to report at this time. ASSESSMENT: 1. Intertrochanteric fracture of the left hip status post same level fall postoperative day #7 from a gamma nail procedure performed by Dr. Delta De La O, orthopedic surgeon requiring ongoing and continued physical therapy presently on Swing Bed admission. 2. Ztm-yuwxrwc-elnevnagh diabetes mellitus type 2. 3. Hypertension. 4. Hypothyroidism. 5. Gastroesophageal reflux disease. PLAN: We will continue present supportive care. She will continue with her strengthening and conditioning with Physical Therapy. Orthopedic issues will be per Dr. De La O. She would like to continue on Swing Bed through the end of this next week. She will have [facility] on discharge. Otherwise we will continue to monitor the patient closely and follow as needed. Dr. Gonzalez is the collaborating physician available for consultation. #[id number] [facility]
[2017-05-13] MEDS: metFORMIN HCL 500 MG TAB PO SCH (17:00)
[2017-05-13] MEDS: TEMAZEPAM 15 MG CAP PO PRN (20:56)
[2017-05-13] MEDS: PRAVASTATIN SODIUM 20 MG TAB PO SCH (20:56)
[2017-05-13] MEDS: amLODIPine BESYLATE 5 MG TAB PO SCH (20:57)
[2017-05-13] MEDS: ASPIRIN EC 81 MG TAB PO SCH (20:57)
[2017-05-13] MEDS: LOSARTAN POTASSIUM 100 MG TAB PO SCH (20:57)
[2017-05-13] MEDS: NON-FORMULARY MEDICATION 1 EA MIS (Raloxifene Hcl [Raloxifene Hydrochloride] 60 MG) PO SCH (20:58)
[2017-05-13] MEDS ORDERED: LORazepam 0.5 MG TAB PO ONE (23:30)
[2017-05-14] MEDS: LEVOTHYROXINE SODIUM 0.025 MG TAB PO SCH (06:28)
[2017-05-14] MEDS: PANTOPRAZOLE SODIUM TAB 40 MG PO SCH (06:28)
[2017-05-14] MEDS: INSULIN LISPRO 100 UNITS/ML PEN SUBCU SCH ×4 (07:21→21:06)
[2017-05-14] MEDS: DOCUSATE SODIUM 100 MG CAP PO SCH (09:37)
[2017-05-14] MEDS: RIVAROXABAN 10 MG TAB PO SCH (09:37)
[2017-05-14] MEDS: METOPROLOL SUCCINATE XL 50 MG TAB PO SCH ×2 (09:39→20:38)
[2017-05-14] MEDS: metFORMIN HCL 500 MG TAB PO SCH (16:44)
[2017-05-14] MEDS: LOSARTAN POTASSIUM 100 MG TAB PO SCH (20:38)
[2017-05-14] MEDS: NON-FORMULARY MEDICATION 1 EA MIS (Raloxifene Hcl [Raloxifene Hydrochloride] 60 MG) PO SCH (20:38)
[2017-05-14] MEDS: amLODIPine BESYLATE 5 MG TAB PO SCH (20:38)
[2017-05-14] MEDS: PRAVASTATIN SODIUM 20 MG TAB PO SCH (20:38)
[2017-05-14] MEDS: ASPIRIN EC 81 MG TAB PO SCH (20:38)
[2017-05-14] MEDS: TEMAZEPAM 15 MG CAP PO PRN (22:00)
[2017-05-15] MEDS: LEVOTHYROXINE SODIUM 0.025 MG TAB PO SCH (06:14)
[2017-05-15] MEDS: PANTOPRAZOLE SODIUM TAB 40 MG PO SCH (06:14)
[2017-05-15] MEDS: INSULIN LISPRO 100 UNITS/ML PEN SUBCU SCH ×4 (07:54→21:20)
--- NOTE | 2017-05-15 08:12 | PN ---
DATE: 05/15/17 SUBJECTIVE: Ms. Corona is doing really well and says her pain is very well controlled. OBJECTIVE: Afebrile. Vital signs stable. Wounds are clean. There are no signs or symptoms of infection. ASSESSMENT: Status post Gamma nail. PLAN: She will continue with physical therapy. She is making progress, however , has not reached all goals. We will allow her to continue on and discharge her when appropriate. [facility][id number] [facility]
[2017-05-15] MEDS: METOPROLOL SUCCINATE XL 50 MG TAB PO SCH ×2 (08:17→21:21)
[2017-05-15] MEDS: DOCUSATE SODIUM 100 MG CAP PO SCH (08:17)
[2017-05-15] MEDS: RIVAROXABAN 10 MG TAB PO SCH (08:17)
[2017-05-15] MEDS: metFORMIN HCL 500 MG TAB PO SCH (16:57)
[2017-05-15] MEDS: LOSARTAN POTASSIUM 100 MG TAB PO SCH (21:21)
[2017-05-15] MEDS: ASPIRIN EC 81 MG TAB PO SCH (21:21)
[2017-05-15] MEDS: PRAVASTATIN SODIUM 20 MG TAB PO SCH (21:21)
[2017-05-15] MEDS: amLODIPine BESYLATE 5 MG TAB PO SCH (21:21)
[2017-05-15] MEDS: NON-FORMULARY MEDICATION 1 EA MIS (Raloxifene Hcl [Raloxifene Hydrochloride] 60 MG) PO SCH (21:25)
[2017-05-16] MEDS: HYDROcodone 5MG/APAP 325MG 1 EA TAB PO PRN (03:06)
[2017-05-16] MEDS: LEVOTHYROXINE SODIUM 0.025 MG TAB PO SCH (06:17)
[2017-05-16] MEDS: PANTOPRAZOLE SODIUM TAB 40 MG PO SCH (06:17)
[2017-05-16] MEDS: INSULIN LISPRO 100 UNITS/ML PEN SUBCU SCH ×3 (07:57→16:57)
[2017-05-16] MEDS: RIVAROXABAN 10 MG TAB PO SCH (08:26)
[2017-05-16] MEDS: METOPROLOL SUCCINATE XL 50 MG TAB PO SCH ×2 (08:26→20:40)
[2017-05-16] MEDS: DOCUSATE SODIUM 100 MG CAP PO SCH (08:26)
--- NOTE | 2017-05-16 11:39 | PN ---
DATE: 05/16/17 SUBJECTIVE: This 81-year-old white lady is continuing with her Swing Bed rehabilitation. She is alert, communicative, in no acute distress at this time. She is requiring ongoing physical therapy to assist with rehab to the point where she will be able to safely return home where she lives alone. Special attention to be able to climb steps and to safely negotiated her home environment. Adequate nutrition and pain control will be continued. If constipation is noted, a dose of Milk of Magnesia can be utilized. OBJECTIVE: VITAL SIGNS: See vital signs. LUNGS: Clear. HEART: Tones are regular. ABDOMEN: Fairly good bronchodilators. Generally soft. Slightly distended. No pain. EXTREMITIES: While sitting in the elda-chair with legs elevated, she describes no pain in her hip after the surgical repair of hip fracture. She describes only minimal discomfort and pain when she is ambulating, which is a significant improvement, which we trust will continue as she builds up her strength and confidence. ASSESSMENT: 1. Postoperative day #10 Gamma nail placement for operative repair of an Intertrochanteric fracture of the left hip, performed by Dr. Delta De La O, orthopedic surgeon. 2. Ehx-opjqacq-jfhsauhpv diabetes mellitus, type 2. 3. History of hypertension. 4. History of hypothyroidism, on supplementation. 5. History of gastroesophageal reflux disease. PLAN: Continue rehabilitation with anticipated discharge home after completion of rehab potential by Monday of this week. Ongoing rehabilitation under the direction of orthopedic surgery and physical therapy to continue. #[id number] [facility]
[2017-05-16] MEDS: metFORMIN HCL 500 MG TAB PO SCH (17:11)
[2017-05-16] MEDS: ASPIRIN EC 81 MG TAB PO SCH (20:41)
[2017-05-16] MEDS: amLODIPine BESYLATE 5 MG TAB PO SCH (20:41)
[2017-05-16] MEDS: NON-FORMULARY MEDICATION 1 EA MIS (Raloxifene Hcl [Raloxifene Hydrochloride] 60 MG) PO SCH (20:41)
[2017-05-16] MEDS: PRAVASTATIN SODIUM 20 MG TAB PO SCH (20:41)
[2017-05-16] MEDS: LOSARTAN POTASSIUM 100 MG TAB PO SCH (20:41)
[2017-05-17] MEDS: TEMAZEPAM 15 MG CAP PO PRN (00:03)
[2017-05-17] MEDS ORDERED: CYCLOBENZAPRINE HCL 10 MG TAB ONE (02:25)
[2017-05-17] MEDS: LEVOTHYROXINE SODIUM 0.025 MG TAB PO SCH (06:12)
[2017-05-17] MEDS: PANTOPRAZOLE SODIUM TAB 40 MG PO SCH (06:13)
[2017-05-17] MEDS: INSULIN LISPRO 100 UNITS/ML PEN SUBCU SCH ×2 (07:22→17:31)
[2017-05-17] MEDS: METOPROLOL SUCCINATE XL 50 MG TAB PO SCH ×2 (08:00→21:36)
[2017-05-17] MEDS: RIVAROXABAN 10 MG TAB PO SCH (08:00)
[2017-05-17] MEDS: DOCUSATE SODIUM 100 MG CAP PO SCH (08:01)
--- NOTE | 2017-05-17 09:21 | PN ---
DATE: 05/17/17 SUBJECTIVE: Ms. Corona is doing really well and she is not having any significant pain. OBJECTIVE: Afebrile. Vital signs stable. Wounds are clean. PLAN: At this point, Ms. Corona is slated to go home on Monday. #[id number] [facility]
--- NOTE | 2017-05-17 11:54 | PN ---
DATE: 05/17/17 The patient is alert and communicative and showing some continued promise and progress with her rehabilitation after her significant left hip fracture requiring surgical repair. We will anticipate discharge as of Monday with the daughter and family being able to stay with her for the entirety of the following week to assist with her transition home. Also, Social Service will be working with [facility] to pick her up and continue with physical therapy with Sourav Berger for physical therapy rehab as an outpatient. A walker and a potty chair will be arranged through Dr. De La O's office when she goes home. The patient is encouraged to stay active and to continue with her usual lifestyle as rehab continues. [facility][id number] [facility]
[2017-05-17] MEDS: metFORMIN HCL 500 MG TAB PO SCH (17:32)
[2017-05-17] MEDS: ASPIRIN EC 81 MG TAB PO SCH (21:35)
[2017-05-17] MEDS: LOSARTAN POTASSIUM 100 MG TAB PO SCH (21:35)
[2017-05-17] MEDS: amLODIPine BESYLATE 5 MG TAB PO SCH (21:36)
[2017-05-17] MEDS: PRAVASTATIN SODIUM 20 MG TAB PO SCH (21:36)
[2017-05-18] MEDS: TEMAZEPAM 15 MG CAP PO PRN ×2 (00:18→23:48)
[2017-05-18] MEDS: NON-FORMULARY MEDICATION 1 EA MIS (Raloxifene Hcl [Raloxifene Hydrochloride] 60 MG) PO SCH ×2 (00:19→20:45)
[2017-05-18] MEDS: LEVOTHYROXINE SODIUM 0.025 MG TAB PO SCH (06:46)
[2017-05-18] MEDS: PANTOPRAZOLE SODIUM TAB 40 MG PO SCH (06:46)
[2017-05-18] MEDS: INSULIN LISPRO 100 UNITS/ML PEN SUBCU SCH ×2 (08:34→16:57)
[2017-05-18] MEDS: METOPROLOL SUCCINATE XL 50 MG TAB PO SCH ×2 (08:35→20:42)
[2017-05-18] MEDS: DOCUSATE SODIUM 100 MG CAP PO SCH (08:35)
[2017-05-18] MEDS: RIVAROXABAN 10 MG TAB PO SCH (08:35)
[2017-05-18] MEDS: metFORMIN HCL 500 MG TAB PO SCH (17:15)
[2017-05-18] MEDS: ASPIRIN EC 81 MG TAB PO SCH (20:41)
[2017-05-18] MEDS: LOSARTAN POTASSIUM 100 MG TAB PO SCH (20:41)
[2017-05-18] MEDS: amLODIPine BESYLATE 5 MG TAB PO SCH (20:42)
[2017-05-18] MEDS: PRAVASTATIN SODIUM 20 MG TAB PO SCH (20:42)
[2017-05-19] MEDS: PANTOPRAZOLE SODIUM TAB 40 MG PO SCH (06:22)
[2017-05-19] MEDS: LEVOTHYROXINE SODIUM 0.025 MG TAB PO SCH (06:22)
[2017-05-19] MEDS: INSULIN LISPRO 100 UNITS/ML PEN SUBCU SCH (07:06)
[2017-05-19] MEDS: DOCUSATE SODIUM 100 MG CAP PO SCH (08:14)
[2017-05-19] MEDS: RIVAROXABAN 10 MG TAB PO SCH (08:14)
[2017-05-19] MEDS: METOPROLOL SUCCINATE XL 50 MG TAB PO SCH (08:14)
[2017-05-19 10:52] VITALS: BP 108/73; TEMP 97.4; O2SAT 94
--- NOTE | 2017-05-28 20:52 | DS ---
SUPERVISING PHYSICIAN: Marco Antonio Hill M.D. DISCHARGE DIAGNOSIS: 1. Postoperative day 11 gamma nail placement for operative repair of intertrochanteric fracture of the left hip performed by Dr. Delta De La O, orthopedic surgeon. 2. Diabetes mellitus type 2 noninsulin dependent, stable. 3. Hypertension well controlled. 4. Hypothyroidism on supplementation. 5. Gastroesophageal reflux disease. HISTORY OF PRESENT ILLNESS: Ms. Corona is an 81 year-old female patient who initially admitted on Acute Care from the Emergency Room on after she presented to the Emergency Department via EMS after she had fallen at a friend's house landing on her left hip. In the Emergency Room, she was found to have a left hip fracture intertrochanteric. She was then admitted after consultation with orthopedic surgeon, Dr. De La O, for an open reduction and internal fixation that was performed on 05/07/17 with a gamma nail placement. The patient did well postoperatively and was able to participate with physical therapy, however she continued to show a need for ongoing physical therapy as she does live alone and it was felt that she was not safe enough to be discharged home. It was felt that in her best interest that she would continue on physical therapy as a Swing Bed patient. The patient was then discharged from Acute Care for continuation of physical therapy and admitted into Swing Bed on 05/17/17. LABORATORY: No other laboratory other than glucoses were performed on admission. Blood sugars ranged from 126 to 214. No microbiology specimens were available. No radiographic studies were completed. HOSPITAL COURSE: The patient was admitted to Swing Bed as noted in History of Present Illness and she did well with her physical therapy, and had met her goals. It was felt that she would benefit from discharge to continue home with continued physical therapy once discharged. PLAN: Ms. Corona was discharged home to have close clinical followup with Dr. De La O as scheduled and to continue with rehab with [facility]. She was told to return to the hospital should she have any concerning symptoms. Wound care was as per Dr. De La O's postoperative care. She was to shower, no tub bath. Physical therapy as per Physical Therapy. To walk with a walker only. DISCHARGE MEDICATIONS: 1. Xarelto 10 mg for 22 days. All other medications are resumed as prior to hospitalization with pain management being provided by Dr. De La O with [place] prescription. Diet at discharge was diabetic diet as tolerated. Condition at discharge was stable and improved. #[id number] [facility]
== END 2017-05-19 12:10 | disposition home health service (06) | DRG 561 ==
LOC: UNDOADMIN 12:50 → MS 12:50 → UNDOADMIN 05-17 08:40 → UNDODISIN 05-19 12:10
PROVIDERS: ADMIT Orthopaedic Surgery; ATTEND Nurse Practitioner Family
DX: S72.142D Displaced intertrochanteric fracture of left femur, subsequent encounter for closed fracture with routine healing (principal); J30.2 Other seasonal allergic rhinitis; E78.5 Hyperlipidemia, unspecified; I10 Essential (primary) hypertension; E03.9 Hypothyroidism, unspecified; M81.0 Age-related osteoporosis without current pathological fracture; E11.9 Type 2 diabetes mellitus without complications; K21.9 Gastro-esophageal reflux disease without esophagitis; Z88.0 Allergy status to penicillin; Z88.8 Allergy status to other drugs, medicaments and biological substances; Z98.890 Other specified postprocedural states; Z66 Do not resuscitate

== ENCOUNTER → 2017-06-05 | Outpatient (CLI) | payer MEDICARE ==
--- NOTE | 2017-06-05 14:23 | RAD ---
EXAM DESCRIPTION: Left hip, 2 views CLINICAL HISTORY: INTERTROCHANTERIC FRACTURE - LEFT FINDINGS/ IMPRESSION: Comparison 05/06/2017 Interval smoothing of the fracture margins with less well-visualized fracture line compatible with fracture healing.. Similar degree of displacement lesser trochanteric fragment No osteolysis/lucency around the hardware to suggest loosening No acute abnormality of the pelvis Electronically signed by: Abner Mckeon MD 06/05/2017 2:21 PM [facility]
== END | disposition home or self-care (01) ==
LOC: RAD 09:12
PROVIDERS: ATTEND Orthopaedic Surgery
DX: S72.142D Displaced intertrochanteric fracture of left femur, subsequent encounter for closed fracture with routine healing (principal); X58.XXXA Exposure to other specified factors, initial encounter

== ENCOUNTER → 2017-07-04 | Outpatient (CLI) | payer MEDICARE ==
--- NOTE | 2017-07-04 20:41 | RAD ---
EXAM DESCRIPTION: Hip,Left 2 Views CLINICAL HISTORY: INTERTROCHANTERIC FRACTURE COMPARISON: June 05, 2017 TECHNIQUE: AP/frog leg lateral FINDINGS: Internal fixation of the left hip with an interlocking compression screw and short intramedullary jonna is in stable alignment without significant foreshortening. Previous fracture line is no longer clearly apparent. Modest healing in the interval since prior study is suspected. A separate lesser trochanteric fragment at is incompletely fused to the distal femoral neck medially. No new fracture or displacement is seen. IMPRESSION: Internally fixed healing fracture of the left hip at the intertrochanteric level with stable alignment. Electronically signed by: Abner Martin MD 07/04/2017 12:56 PM [facility]
== END | disposition home or self-care (01) ==
LOC: RAD 09:10
PROVIDERS: ATTEND Orthopaedic Surgery
DX: S72.142D Displaced intertrochanteric fracture of left femur, subsequent encounter for closed fracture with routine healing (principal)

== ENCOUNTER → 2017-07-17 | Outpatient (CLI) | payer MEDICARE ==
--- NOTE | 2017-07-17 10:24 | RAD ---
EXAM DESCRIPTION: Left hip, 2 views CLINICAL HISTORY: Fracture fixation FINDINGS/ IMPRESSION: Comparison 2017 Intramedullary nail and dynamic hip screw fracture fixation of comminuted intertrochanteric fracture with similar degree of displacement of the trochanteric fracture fragments. There is no new fracture or displacement. No fracture of the visualized pelvis Electronically signed by: Abner Mckeon MD 07/17/2017 10:23 AM [facility]
== END | disposition home or self-care (01) ==
LOC: RAD 09:04
PROVIDERS: ATTEND Orthopaedic Surgery
DX: S72.142D Displaced intertrochanteric fracture of left femur, subsequent encounter for closed fracture with routine healing (principal)

== ENCOUNTER → 2017-07-31 | Outpatient (CLI) | payer MEDICARE ==
--- NOTE | 2017-07-31 13:52 | RAD ---
EXAM DESCRIPTION: Hip,Left 2 Views CLINICAL HISTORY: 82 years Female, INTERTROCHANTERIC FX COMPARISON: July 17, 2017 FINDINGS: Again seen are postoperative changes including a metallic nail in the left femoral head and neck with an interlocking intramedullary jonna and a single distal locking screw. No hardware complication is identified. There is a healed or healing intertrochanteric left femoral fracture, stable. No new fracture or malalignment. Mild degenerative changes are noted in the left hip including joint space narrowing. IMPRESSION: Uncomplicated postoperative changes in the left hip with a healed or healing intertrochanteric left femoral fracture. No new abnormality. Electronically signed by: Sathya Rodriguez MD 07/31/2017 1:52 PM [facility]
== END ==
LOC: RAD 08:54
PROVIDERS: ATTEND Orthopaedic Surgery
DX: S72.142D Displaced intertrochanteric fracture of left femur, subsequent encounter for closed fracture with routine healing (principal)

== ENCOUNTER → 2017-09-08 | Outpatient (CLI) | payer MEDICARE ==
--- NOTE | 2017-09-08 17:54 | RAD ---
EXAM DESCRIPTION: Hip,Left 2 Views CLINICAL HISTORY: 82 years, Female, DISPLACED INTERTROCHANTERIC COMPARISON: Previous study July 31, 2017 TECHNIQUE: AP and frog leg lateral views of the hip FINDINGS: Left hip orthopedic hardware bridges an intertrochanteric fracture with callus formation of healing. Compared to previous study, no change in alignment is seen. No hardware complication. Degenerative changes are seen in the lower L-spine and inferior left SI joint and pubic symphysis. Intact left hemipelvic osseous structures. There is no joint space abnormality observed. IMPRESSION: Stable x-ray appearance of left hip and femur with orthopedic hardware in place. Electronically signed by: Matt Small MD 09/08/2017 5:53 PM [facility]
== END ==
LOC: RAD 08:50
PROVIDERS: ATTEND Orthopaedic Surgery
DX: S72.142D Displaced intertrochanteric fracture of left femur, subsequent encounter for closed fracture with routine healing (principal)

== ENCOUNTER → 2017-09-15 | Outpatient (CLI) | payer MEDICARE ==
--- NOTE | 2017-09-15 16:10 | CT ---
EXAM DESCRIPTION: Chest w/o Contrast CLINICAL HISTORY: 82 years, Female, SOLITARY PULMONARY NODULE R91.1 COMPARISON: Previous chest x-ray May 05, [address] abdomen August 19, 2016 TECHNIQUE: Thin-section noncontrast axial CT images are obtained according to our protocol. Reconstructed MPR images are created and reviewed as well. FINDINGS: Compared to previous images through the lower chest from August 19, [address], nodular subpleural density in the anterior right middle lobe is unchanged measuring 5 mm. Small cluster of nodules in the right lower lobe appear unchanged with the largest measuring 4.5 mm. Smaller nodules are in the 2 to 3 mm size range and appear stable. No new or enlarging nodules. Patchy partial volume loss is seen in the left lower lobe. Small subpleural nodule adjacent to the mediastinum in the anterior segment right upper lobe measures 5 mm and appears benign. Mild subpleural scarring in the anterior medial left apex. Biapical pleural-parenchymal scarring is seen bilaterally. No pneumothorax or pleural effusion. No new nodules or enlarging nodules. No pneumothorax or pleural effusion. Heart size is normal. No mediastinal or hilar adenopathy. No lower cervical or supraclavicular or axillary solomon enlargement. Nodular breast parenchyma tissue pattern is seen bilaterally. Correlate with mammographic findings if indicated. Some images are obtained through the upper abdomen. Decreased density of the liver is consistent with mild to moderate fatty infiltration with parenchymal sparing near the gallbladder. No calcified gallstones. Upper portions of pancreas, spleen, adrenal glands and left kidney are unremarkable. Cyst in the inferior right kidney measures 3.8 cm with medial mural calcification which appears benign. Density of the lesion is 6.5 Hounsfield units consistent with a cyst. No renal stones on either side. Follow-up of pulmonary nodules should be performed as per Fleischner Society 2017 criteria. 2017 Fleischner Society Recommendations for Multiple Solid Lung Nodules Follow-Up base on size (average of long- and short-axis diameters). Use most suspicious nodule for followup. Nodule Size <6 mm Low-Risk Patient: No routine follow-up Nodule Size <6 mm High-Risk Patient: Optional CT at 12 months Since all of the right lower lobe nodules seen on the previous exam 13 months ago are less than 6 mm, these need no further follow-up. 5 mm nodule in the medial right upper lobe first documented on the present study could be followed up in one year. IMPRESSION: Right lower lobe pulmonary nodules appear stable compared to the previous study. Subpleural nodule in the anterior segment right upper lobe measures 5 mm and follow-up is recommended as per criteria above. This exam was performed according to our departmental dose-optimization program, which includes automated exposure control, adjustment of the mA and/or kV according to patient size and/or use of iterative reconstruction technique. Total DLP equals 629.13 mGycm. Electronically signed by: Matt Small MD 09/15/2017 4:09 PM CDT
== END ==
LOC: CT 09:48
PROVIDERS: ATTEND Family Medicine
DX: R91.1 Solitary pulmonary nodule (principal)

== ENCOUNTER 2018-01-05 20:31 | Emergency (ER) | payer MEDICARE ==
--- NOTE | 2018-01-05 21:15 | ED.PDOC ---
History of Present Illness - General Chief Complaint: ENT Problem Stated Complaint: felt fishbone back of throat Time Seen by Provider: 01/05/18 20:32 Source: patient Exam Limitations: no limitations - History of Present Illness Initial Comments: Aviva Corona 82 y/o female stated that she ate catfish tonight about 4 hours prior to ER visit felt fishbone got stuck at the back of throat.Stated kept on eating thinking it might go down with food and waited but symptoms no getting better decided to come to ER.Denies pain on swallowing,achy throat,drooling. Timing/Duration: this evening Severity: moderate EENT Location: throat Prearrival Treatment: no prearrival treatment Presenting Symptoms: foreign body sensation back of throat Improving Factors: nothing Worsening Factors: nothing Associated Symptoms: other - see hpi Allergies/Adverse Reactions: Allergies Penicillins Allergy (Verified 05/05/17 18:50) Home Medications: Ambulatory Orders Amlodipine Besylate 5 mg PO BEDTIME 05/05/17 Aspirin [Aspirin Adult Low Dose] 81 mg PO BEDTIME 05/05/17 Levothyroxine Sodium 50 mcg PO DAILY 05/05/17 Losartan Potassium [Cozaar] 100 mg PO BEDTIME 05/05/17 Metformin HCl 500 mg PO 1730 05/05/17 Metoprolol Succinate [Metoprolol Succinate ER] 50 mg PO BID 05/05/17 Pantoprazole Tablet [Protonix] 40 mg PO DAILY 05/05/17 Pravastatin Sodium [Pravachol] 40 mg PO BEDTIME 05/05/17 Raloxifene HCl [Raloxifene Hydrochloride] 60 mg PO BEDTIME 05/05/17 hydrOXYzine HCl [Atarax] 25 mg PO Q4HR PRN 05/08/17 Rivaroxaban [Xarelto] 10 mg PO QD #22 tab 05/19/17 Review of Systems - Review of Systems Constitutional: States: no symptoms reported EENTM: States: see HPI Respiratory: States: no symptoms reported Cardiology: States: no symptoms reported Gastrointestinal/Abdominal: States: no symptoms reported Genitourinary: States: no symptoms reported Musculoskeletal: States: no symptoms reported Skin: States: no symptoms reported All other Systems: Reviewed and Negative, No Change from Baseline Past Medical History (General) - Patient Medical History Hx Seizures: No Hx Stroke: No Hx Dementia: No Hx Asthma: No Hx of COPD: No Hx Cardiac Disorders: No Hx Congestive Heart Failure: No Hx Pacemaker: No Hx Hypertension: Yes Hx Thyroid Disease: Yes - hypothyroid Hx Diabetes: Yes Hx Gastroesophageal Reflux: No Hx Renal Disease: No Hx Cancer: No Hx of HIV: No Hx Hepatitis C: No Hx MRSA: No Surgical History: other - hip surgery left - Vaccination History Hx Tetanus, Diphtheria Vaccination: No Hx Influenza Vaccination: No Hx Pneumococcal Vaccination: Yes - Social History Hx Tobacco Use: No Hx Alcohol Use: No Hx Substance Use: No Hx Physical Abuse: No Hx Emotional Abuse: No - Activities of Daily Living Grooming Ability: Independent Eating (Feeding) Ability: Independent Toileting Ability: Independent Family Medical History - Family History Mother Family History: No Known Living Status: Physical Exam - Physical Exam General Appearance: Alert, Comfortable, No apparent distress Eye Exam: bilateral normal Ear Exam: bilateral ear: auricle normal, canal normal, TM normal Nasal Exam: normal inspection Throat Exam: normal mouth inspection, pharynx normal Neck: non-tender, full range of motion, supple Cardiovascular/Respiratory: regular rate, rhythm, no M/R/G, normal peripheral pulses, normal breath sounds, no respiratory distress Abdominal Exam: non-tender, no organomegaly Neurologic: alert, oriented x 3 Skin Exam: normal color, warm/dry Progress - Progress Progress: 01/05/18 21:57 Vital Signs - 8 hr 01/05/18 21:22 Temperature 99.1 F Pulse Rate [ 80 left radial] Respiratory 20 Rate Blood Pressure 185/80 [Right Arm] O2 Sat by Pulse 97 Oximetry 2157 h Patient stated no longer feeling the foreign body sensation - EKG/XRAY/CT XRAY: soft tissue neck no foreign body noted Departure - Departure Clinical Impression: Sensation of foreign body in esophagus Time of Disposition: 22:11 Disposition: Discharge to Home or Self Care Departure Forms: ED Discharge - Pt. Copy, Patient Portal Self Enrollment Referrals: NEDRA ALDRICH MD [Primary Care Provider] - 1-2 Weeks Home Medications: Ambulatory Orders Amlodipine Besylate 5 mg PO BEDTIME 05/05/17 Aspirin [Aspirin Adult Low Dose] 81 mg PO BEDTIME 05/05/17 Levothyroxine Sodium 50 mcg PO DAILY 05/05/17 Losartan Potassium [Cozaar] 100 mg PO BEDTIME 05/05/17 Metformin HCl 500 mg PO 1730 05/05/17 Metoprolol Succinate [Metoprolol Succinate ER] 50 mg PO BID 05/05/17 Pantoprazole Tablet [Protonix] 40 mg PO DAILY 05/05/17 Pravastatin Sodium [Pravachol] 40 mg PO BEDTIME 05/05/17 Raloxifene HCl [Raloxifene Hydrochloride] 60 mg PO BEDTIME 05/05/17 hydrOXYzine HCl [Atarax] 25 mg PO Q4HR PRN 05/08/17 Rivaroxaban [Xarelto] 10 mg PO QD #22 tab 05/19/17 Additional Instructions: RETURN TO ER NEEDED
[2018-01-05 21:29] VITALS: TEMP 99.1
--- NOTE | 2018-01-05 22:06 | RAD ---
EXAM DESCRIPTION: Neck,Soft Tissue CLINICAL HISTORY: 82 years Female, fishbone back of throat COMPARISON: None. FINDINGS: Soft tissues are unremarkable. No evidence of radiopaque foreign body. No obvious retropharyngeal soft tissue swelling. Epiglottis appears normal. Mild degenerative changes of the cervical spine noted. Visualized lung apices are clear. IMPRESSION: No obvious radiopaque foreign body. Electronically signed by: Osmani Yee MD 01/05/2018 10:04 PM CDT
[2018-01-05 22:34] VITALS: BP 148/72; O2SAT 98
== END 2018-01-05 22:30 | disposition home or self-care (01) ==
LOC: ER 20:31
DX: R09.89 Other specified symptoms and signs involving the circulatory and respiratory systems (principal); I10 Essential (primary) hypertension; E03.9 Hypothyroidism, unspecified; E11.9 Type 2 diabetes mellitus without complications; Z79.82 Long term (current) use of aspirin; Z79.84 Long term (current) use of oral hypoglycemic drugs; Z88.0 Allergy status to penicillin

== ENCOUNTER → 2018-08-20 | Outpatient (CLI) | payer MEDICARE | LOC: GMAE 17:50 | PROVIDERS: ATTEND Family Medicine | DX: E03.9 Hypothyroidism, unspecified (principal) ==

== ENCOUNTER → 2019-02-18 | Outpatient (CLI) | payer MEDICARE | LOC: GMAE 11:04 | PROVIDERS: ATTEND Family Medicine | DX: I10 Essential (primary) hypertension (principal); E03.9 Hypothyroidism, unspecified; E11.9 Type 2 diabetes mellitus without complications; E78.2 Mixed hyperlipidemia ==

== ENCOUNTER → 2020-02-24 | Outpatient (CLI) | payer MEDICARE | END | disposition home or self-care (01) | LOC: GMAE 10:39 | PROVIDERS: ATTEND Family Medicine | DX: E03.9 Hypothyroidism, unspecified (principal) ==